=== PATIENT | male | born 1950 | race Caucasian/White ===

== ENCOUNTER 2017-02-24 15:56 | Inpatient (IN) | payer MEDICARE ==
[2017-02-24] VITALS (7 sets, daily range): BP systolic 81–120; BP diastolic 59–90; PULSE 84–151; RESP 28–36; TEMP 97.9; O2SAT 94–100
[2017-02-24] MEDS ORDERED: methylPREDNISolone SOD SUCC 125 MG/2 ML VIAL IVP ONE (16:15)
[2017-02-24] MEDS ORDERED: SODIUM CHLORIDE 0.9% FLUSH 10 ML FLUSH IVF PRN (16:15)
[2017-02-24] MEDS ORDERED: DILTIAZEM HCL 25 MG/5 ML VIAL IV ONE ×2 (16:15→17:15)
[2017-02-24] MEDS: RESP: ALBUTEROL 2.5 MG/IPRATROPIUM 0.5 MG NEB (SCH) INH (16:27)
[2017-02-24 16:40] LABS: AUTOMATED NEUTROPHIL # 21.8 TH/MM3 (1.8-7.7); BASOPHIL # 0.2 TH/MM3 (0-0.2); BASOPHIL % 0.8 % (0.0-2.0); EOSINOPHIL % 0.1 % (0.0-4.0); HEMATOCRIT 44.9 % (39.0-51.0); LYMPH % 3.9 % (9.0-44.0); MEAN CELL VOLUME 90.5 FL (80.0-100.0); MEAN CORPUSCULAR HEMOGLOBIN 29.2 PG (27.0-34.0); MEAN CORPUSCULAR HGB CONC 32.3 % (32.0-36.0); MONO % 6.2 % (0.0-8.0); PLATELET COUNT 255 TH/MM3 (150-450); RED BLOOD COUNT 4.97 MIL/MM3 (4.50-5.90); RED CELL DISTRIBUTION WIDTH 15.5 % (11.6-17.2); WHITE BLOOD COUNT 24.5 TH/MM3 (4.0-11.0)
[2017-02-24 16:44] LABS: HEMO FLAGS AUTO DIFF
[2017-02-24 16:48] LABS: APTT (PATIENT) 29.5 SEC (24.3-30.1); INTERNATIONAL NORMALIZED RATIO 1.3 RATIO; PROTHROMBIN TIME - PATIENT 14.7 SEC (9.8-11.6)
--- NOTE | 2017-02-24 16:48 | RADRPT ---
EXAM DATE/TIME: 02/24/2017 16:37 [place] COMPARISON: No previous studies available for comparison. INDICATIONS : Shortness of breath. MEDICAL HISTORY : None. SURGICAL HISTORY : None. ENCOUNTER: Initial ACUITY: 1 day PAIN SCORE: 0/10 LOCATION: Bilateral chest FINDINGS: A single view of the chest demonstrates the lungs to be hypoinflated with bibasilar atelectatic zhu es and possible associated effusions. Left perihilar airspace disease. Accounting for low lung volume s, heart size appears to be upper limits of normal. Degenerative spurring of the dorsal spine. Osseou s structures are otherwise intact. CONCLUSION: 1. Hypoinflation with bibasilar atelectasis and possible associated effusions. 2. Left perihilar airspace disease is nonspecific and may represent additional areas of atelectasis o r early infiltrate. Dominick Diamond MD on February 24, 2017 at 16:44 Board Certified Radiologist. This report was verified electronically.
--- NOTE | 2017-02-24 16:55 | PD ---
HPI Chief Complaint: Respiratory Symptoms Time Seen by Provider: 16:04 Travel History International Travel<30 days: No Contact w/Intl Traveler<30days: No Traveled to known affect area: No History of Present Illness HPI This is a 66-year-old male who has a history chemotherapy related cardiomyopathy as well as COPD who presents to the emergency department with increasing shortness of breath it's been progressive over the past week, constant, worsening, associated with a productive cough with white sputum, with no fevers or chills. He recently was treated by Dr. Marx for a COPD exacerbation and completed a course of prednisone. When his symptoms restarted he started prednisone again but his symptoms have not resolved. He went Dr. Parra today and in the office he was found to be in atrial fibrillation which appears to be a new diagnosis for him and he was transferred to the hospital. He denies any chest pain. PFSH Past Medical History Inguinal Hernia: Yes (1 RIGHT, 1 LEFT ) Tetanus Vaccination: > 5 Years Influenza Vaccination: Yes ?: Not Past Surgical History Eye Surgery: Yes (LASER EYE SURGERY) Thoracic Surgery: Yes (THORACOTOMY ) Social History Alcohol Use: No Tobacco Use: No Substance Use: No Allergies-Medications (Allergen,Severity, Reaction): Coded Allergies: HMG-CoA Reductase Inhibitors (Verified Allergy, Unknown, 02/24/17) Reported Meds & Prescriptions Reported Meds & Active Scripts Active Reported Levetiracetam 500 Mg Tab 500 Mg PO BID Klor-Con 10 (Potassium Chloride) 10 Meq Tab 10 Meq PO DAILY Furosemide 20 Mg Tab 20 Mg PO DAILY Anoro Ellipta Inh (Umeclidinium/Vilanterol) 62.5-25 Mcg/Act Aero 1 Puff INH DAILY Synthroid (Levothyroxine Sodium) 100 Mcg Tab 100 Mcg PO DAILY Aspirin 81 Mg Chew 81 Mg CHEW DAILY Crestor (Rosuvastatin Calcium) 20 Mg Tab 20 Mg PO DAILY Coreg (Carvedilol) 3.125 Mg Tab 3.125 Mg PO BID Review of Systems Except as stated in HPI: all other systems reviewed are Neg Physical Exam Narrative GENERAL: Moderate respiratory distress SKIN: Focused skin assessment warm and dry. HEAD: Atraumatic. Normocephalic. EYES: Pupils equal and round. No injection or drainage. ENT: Moist mucous membranes NECK: Trachea midline. CARDIOVASCULAR: Regular rate and rhythm. No murmur appreciated. RESPIRATORY: Prolonged expiratory phase, accessory muscle use, Rales in the bilateral lung bases GASTROINTESTINAL: Abdomen soft, non-tender, nondistended. MUSCULOSKELETAL: No obvious deformities. NEUROLOGICAL: Awake and alert. No obvious cranial nerve deficits. Moving all extremities. PSYCHIATRIC: Appropriate mood and affect; insight and judgment normal. Data Data Last Documented VS Vital Signs Date Time Temp Pulse Resp B/P Pulse Ox O2 Delivery O2 Flow Rate FiO2 02/24/17 17:30 142 30 103/75 94 Nasal Cannula 3 02/24/17 15:58 97.9 Orders Complete Blood Count With Diff (02/24/17 16:10) Comprehensive Metabolic Panel (02/24/17 16:10) B-Type Natriuretic Peptide (02/24/17 16:10) Troponin I (02/24/17 16:10) Iv Access Insert/Monitor (02/24/17 16:10) Electrocardiogram (02/24/17 16:10) Ecg Monitoring (02/24/17 16:10) Oximetry (02/24/17 16:10) Oxygen Administration (02/24/17 16:10) Chest, Single Ap (02/24/17 16:10) Sodium Chloride 0.9% Flush (Ns Flush) (02/24/17 16:15) Methylprednisolone So Succ Inj (Solumedr (02/24/17 16:15) Albuterol-Ipratropium Neb (Duoneb Neb) (02/24/17 16:15) Resp Bipap / Cpap Non Invas Vt (02/24/17 16:10) Arterial Blood Gas (Abg) (02/24/17 ) Diltiazem Inj (Cardizem Inj) (02/24/17 16:15) Prothrombin Time / Inr (Pt) (02/24/17 16:12) Act Partial Throm Time (Ptt) (02/24/17 16:12) Furosemide Inj (Lasix Inj) (02/24/17 17:00) Diltiazem Inj (Cardizem Inj) (02/24/17 17:15) Vital Signs (Adult) Q15MX4,Q4H (02/24/17 17:06) [employer] / Telemetry BRYAN.Q8H (02/24/17 17:06) Cardiac Rhythm BRYAN.Q8H (02/24/17 17:06) Notify Dr: Other (4/17/17 17:06) Diltiazem Inj (Cardizem Inj) (02/24/17 17:15) Admit Order (Ed Use Only) (02/24/17 18:23) Labs Laboratory Tests Test 02/24/17 02/24/17 16:20 17:12 White Blood Count 24.5 TH/MM3 Red Blood Count 4.97 MIL/MM3 Hemoglobin 14.5 GM/DL Hematocrit 44.9 % Mean Corpuscular Volume 90.5 FL Mean Corpuscular Hemoglobin 29.2 PG Mean Corpuscular Hemoglobin 32.3 % Concent Red Cell Distribution Width 15.5 % Platelet Count 255 TH/MM3 Mean Platelet Volume 9.5 FL Neutrophils (%) (Auto) 89.0 % Lymphocytes (%) (Auto) 3.9 % Monocytes (%) (Auto) 6.2 % Eosinophils (%) (Auto) 0.1 % Basophils (%) (Auto) 0.8 % Neutrophils # (Auto) 21.8 TH/MM3 Lymphocytes # (Auto) 1.0 TH/MM3 Monocytes # (Auto) 1.5 TH/MM3 Eosinophils # (Auto) 0.0 TH/MM3 Basophils # (Auto) 0.2 TH/MM3 CBC Comment AUTO DIFF Differential Total Cells 100 Counted Neutrophils % (Manual) 83 % Band Neutrophils % 7 % Lymphocytes % 4 % Monocytes % 6 % Neutrophils # (Manual) 22.1 TH/MM3 Differential Comment FINAL DIFF MANUAL Platelet Estimate NORMAL Platelet Morphology Comment NORMAL Red Cell Morphology Comment NORMAL Prothrombin Time 14.7 SEC Prothromb Time International 1.3 RATIO Ratio Activated Partial 29.5 SEC Thromboplast Time Sodium Level 142 MEQ/L Potassium Level 4.7 MEQ/L Chloride Level 105 MEQ/L Carbon Dioxide Level 28.4 MEQ/L Anion Gap 9 MEQ/L Blood Urea Nitrogen 40 MG/DL Creatinine 1.31 MG/DL Estimat Glomerular Filtration 54 ML/MIN Rate Random Glucose 124 MG/DL Calcium Level 8.9 MG/DL Total Bilirubin 1.0 MG/DL Aspartate Amino Transf 38 U/L (AST/SGOT) Alanine Aminotransferase 48 U/L (ALT/SGPT) Alkaline Phosphatase 105 U/L Troponin I 0.07 NG/ML B-Type Natriuretic Peptide 969 PG/ML Total Protein 7.5 GM/DL Albumin 2.8 GM/DL Blood Gas Puncture Site RT RADIAL Blood Gas Patient Temperature 98.6 Blood Gas HCO3 25 mmol/L Blood Gas Base Excess 1.5 mmol/L Blood Gas Oxygen Saturation 98 % Arterial Blood pH 7.44 Arterial Blood Partial 38 mmHg Pressure CO2 Arterial Blood Partial 179 mmHG Pressure O2 Arterial Blood Oxygen Content 19.7 Vol % Arterial Blood 1.5 % Carboxyhemoglobin Arterial Blood Methemoglobin 0.5 % Blood Gas Hemoglobin 14.1 G/DL Oxygen Delivery Device BiPAP Blood Gas Ventilator Setting IPAP10 EPAP10 Blood Gas Inspired Oxygen 40 % MDM Medical Decision Making Medical Screen Exam Complete: Yes Emergency Medical Condition: Yes Interpretation(s) Afebrile, tachycardic, tachypneic Leukocytosis with 89% neutrophils 7% bands BNP is 969 Troponin is 0.07 Creatinine is 1.3 Differential Diagnosis Congestive heart failure, atrial fibrillation with RVR, pulmonary embolism, pneumonia, COPD exacerbation Narrative Course This is a 66-year-old male who has a history of COPD and cardiomyopathy who presents to the emergency department with increasing shortness of breath it's been worsening over the past week and acutely worsened today. On arrival he was cyanotic with blue color around his lips and his fingers. We were unable to obtain a pulse ox. He had accessory muscle use and was speaking in 2 word sentences. He was placed on BiPAP and his color improved. His oxygenation improved and he was more comfortable. He was found to be tachycardic with atrial fibrillation with RVR and EKG which is a new diagnosis for him. He was given 2 diltiazem boluses and started on a diltiazem infusion. He was also given serial bronchodilator treatments and methylprednisolone in the setting of his history of COPD. Labs and chest x-ray confirm congestive heart failure exacerbation. Patient also has a leukocytosis which is likely in the setting of recent prednisone use and has a 7% bandemia. He'll be empirically covered for possible pneumonia given his ill appearance. Patient was trialed off of BiPAP after reassuring blood gas and about 2 hours of observation and he became acutely dyspneic again and his oxygen saturations dropped. Patient was placed back on BiPAP and will be admitted to the intensive care unit. Critical Care Narrative Aggregate critical care time was 45 minutes. Time to perform other separately billable procedures was not included in the critical care time. My time did not include minutes spent treating any other patients simultaneously or on activities that did not directly contribute to the patient's treatment. The services I provided to this patient were to treat and/or prevent clinically significant deterioration that could result in: Disability, I provided critical care services requiring my management, as noted below: Chart data review, documentation time, medication orders and management, vital sign assessments/reviewing monitor data, ordering and reviewing lab tests, ordering and interpreting/reviewing x-rays and diagnostic studies, care of the patient and discussion of the patient with the admitting physicians. Diagnosis Primary Impression: Atrial fibrillation with RVR Additional Impression: Congestive heart failure Qualified Code: I50.9 - Acute congestive heart failure, unspecified congestive heart failure type Admitting Information Admitting Physician Requests: Admit Mildred Castano MD Feb 24, 2017 16:55
[2017-02-24] MEDS ORDERED: FUROSEMIDE 40 MG/4 ML VIAL IV PUSH ONE (17:00)
[2017-02-24] MEDS ORDERED: POTA-243 PO (17:02)
[2017-02-24] MEDS ORDERED: LEVO.1 PO (17:02)
[2017-02-24] MEDS ORDERED: ASPI81CH CHEW (17:02)
[2017-02-24] MEDS ORDERED: LEVE500T8 PO (17:02)
[2017-02-24] MEDS ORDERED: UMEC1AER INH (17:02)
[2017-02-24] MEDS ORDERED: FURO20TA PO (17:02)
[2017-02-24] MEDS ORDERED: ROSU20 PO (17:02)
[2017-02-24] MEDS ORDERED: CARV3.125 PO (17:02)
[2017-02-24 17:03] LABS: ALKALINE PHOSPHATASE 105 U/L (45-117)
[2017-02-24 17:05] LABS: BANDS 7 % (0-6); NEUTROPHIL # MANUAL DIFF 22.1 TH/MM3 (1.8-7.7); PLATELET ESTIMATE SMEAR NORMAL (NORMAL); PLATELET MORPHOLOGY NORMAL (NORMAL); POLYS (SEG NEUTROPHILS) 83 % (16-70); SCAN/DIFF FINAL DIFF MANUAL; WBC DIFF SAMPLE 100
[2017-02-24 17:06] LABS: ALT (GPT) 48 U/L (12-78); ANION GAP 9 MEQ/L (5-15); AST (GOT) 38 U/L (15-37); BICARBONATE 28.4 MEQ/L (21.0-32.0); BLOOD UREA NITROGEN 40 MG/DL (7-18); CHLORIDE 105 MEQ/L (98-107); GLOMERULAR FILTRATION RATE 54 ML/MIN (>89); POTASSIUM 4.7 MEQ/L (3.5-5.1); SODIUM (NA) 142 MEQ/L (136-145)
[2017-02-24] MEDS ORDERED: DILTIAZEM INJ 125 MG in SODIUM CHLORIDE 0.9% INJ 100 ML IV SCH (17:15)
[2017-02-24 17:22] LABS: BLOOD GAS BASE EXCESS 1.5 mmol/L (-2-2); BLOOD GAS CARBOXYHEMOGLOBIN 1.5 % (0-4); BLOOD GAS HCO3 25 mmol/L (22-26); BLOOD GAS METHEMOGLOBIN 0.5 % (0-2); BLOOD GAS O2 HGB SATURATION 98 % (90-100); BLOOD GAS OXYGEN CONTENT 19.7 Vol % (12.0-20.0); BLOOD GAS PCO2 38 mmHg (38-42); BLOOD GAS PO2 179 mmHG (61-120); BLOOD GAS TOTAL HGB 14.1 G/DL (12.0-16.0); CRITICAL VALUE NO; DRAW SITE RT RADIAL; FIO2 40 %; NUMBER OF ARTERIAL PUNCTURES 1; OXYGEN DEVICE BiPAP; STAT YES; TEMP CORR TO 98.6; ULNAR PULSE Y; VENT SETTINGS IPAP10 EPAP10
[2017-02-24] MEDS ORDERED: CEFEPIME INJ 2,000 MG in SODIUM CHLORIDE 0.9% INJ 100 ML IV ONE (18:30)
[2017-02-24] MEDS ORDERED: AZITHROMYCIN INJ 500 MG in SODIUM CHLOR 0.9% 250 ML INJ 250 ML IV ONE (18:30)
[2017-02-24] MEDS ORDERED: AMIODARONE INJ 150 MG in DEXTROSE 5% IN WATER 100ML INJ 97 ML IV ONE ×2 (18:45)
[2017-02-24] MEDS ORDERED: AMIODARONE INJ 450 MG in DEXTROSE 5% IN WATE(EXCEL) INJ 241 ML IV SCH ×2 (18:45)
[2017-02-24] MEDS ORDERED: ZOLPIDEM TARTRATE 5 MG TAB PO PRN (19:00)
[2017-02-24] MEDS ORDERED: MORPHINE SULFATE 4 MG/ML INJ IV PRN (19:00)
[2017-02-24] MEDS ORDERED: METOCLOPRAMIDE HCL 10 MG/2 ML VIAL IV PRN (19:00)
[2017-02-24] MEDS ORDERED: ONDANSETRON HCL 4 MG/2 ML VIAL IV PRN (19:00)
[2017-02-24] MEDS ORDERED: SODIUM CHLORIDE 0.9% FLUSH 10 ML FLUSH PRN (19:00)
[2017-02-24] MEDS ORDERED: ALBUMIN HUMAN 5% 25 GM/500 ML BOTTLE IV ONE (19:00)
[2017-02-24] MEDS ORDERED: CHLORHEXIDINE GLUCONATE 2 % 1 PACK (2 CLOTHS) TOP PRN (19:00)
[2017-02-24] MEDS ORDERED: ENOXAPARIN SODIUM 40 MG/0.4 ML SYRINGE SQ SCH (19:00)
[2017-02-24] MEDS ORDERED: ACETAMINOPHEN 325 MG TAB PO PRN (19:00)
[2017-02-24] MEDS ORDERED: MISCELLANEOUS NURSING INFORMATION XX SCH (19:00)
[2017-02-24] MEDS ORDERED: RESP: ALBUTEROL 2.5 MG/IPRATROPIUM 0.5 MG NEB (PRN) INH (19:00)
--- NOTE | 2017-02-24 19:32 | EKG ---
Date Performed: 02/24/2017 Time Performed: 16:44:10 PTAGE: 66 years EKG: ATRIAL FIBRILLATION WITH RAPID VENTRICULAR RESPONSE SEPTAL MYOCARDIAL INFARCTION ABNORMAL E CG NO PREVIOUS TRACING DOCTOR: Nghia Watson Interpretating Date/Time 02/24/2017 19:31:24
[2017-02-24] MEDS ORDERED: RESP: ALBUTEROL 2.5 MG/IPRATROPIUM 0.5 MG NEB (SCH) INH (20:00)
[2017-02-24] MEDS ORDERED: EPINEPHrine HCL (1:1000) 1 MG/ML VIAL ONE (20:02)
[2017-02-24 20:26] LABS: BLOOD GAS BASE EXCESS -0.6 mmol/L (-2-2); BLOOD GAS CARBOXYHEMOGLOBIN 1.1 % (0-4); BLOOD GAS HCO3 22 mmol/L (22-26); BLOOD GAS METHEMOGLOBIN 0.1 % (0-2); BLOOD GAS O2 HGB SATURATION 99 % (90-100); BLOOD GAS OXYGEN CONTENT 15.6 Vol % (12.0-20.0); BLOOD GAS PCO2 25 mmHg (38-42); BLOOD GAS PO2 308 mmHG (61-120); BLOOD GAS TOTAL HGB 10.7 G/DL (12.0-16.0); CRITICAL VALUE YES; TEMP CORR TO 98.6
[2017-02-24 20:27] LABS: DRAW SITE ART LINE; FIO2 100 %; LITER FLOW 15 L/M; OXYGEN DEVICE AMBU; STAT YES
--- NOTE | 2017-02-24 20:32 | PD ---
Physical Exam Narrative 66-year-old male was seen by Dr. Castano and admitted to Dr. Rousseau. Patient went into cardiopulmonary arrest. [employer] lending team member shows PEA. ACLS protocol started. Dr. Rousseau was intact immediately and came to the bedside. Data Data Last Documented VS Vital Signs Date Time Temp Pulse Resp B/P Pulse Ox O2 Delivery O2 Flow Rate FiO2 02/24/17 17:30 142 30 103/75 94 Nasal Cannula 3 02/24/17 15:58 97.9 Orders Complete Blood Count With Diff (02/24/17 16:10) Comprehensive Metabolic Panel (02/24/17 16:10) B-Type Natriuretic Peptide (02/24/17 16:10) Troponin I (02/24/17 16:10) Iv Access Insert/Monitor (02/24/17 16:10) Electrocardiogram (02/24/17 16:10) Ecg Monitoring (02/24/17 16:10) Oximetry (02/24/17 16:10) Oxygen Administration (02/24/17 16:10) Chest, Single Ap (02/24/17 16:10) Sodium Chloride 0.9% Flush (Ns Flush) (02/24/17 16:15) Methylprednisolone So Succ Inj (Solumedr (02/24/17 16:15) Albuterol-Ipratropium Neb (Duoneb Neb) (02/24/17 16:15) Resp Bipap / Cpap Non Invas Vt (02/24/17 16:10) Arterial Blood Gas (Abg) (02/24/17 ) Diltiazem Inj (Cardizem Inj) (02/24/17 16:15) Prothrombin Time / Inr (Pt) (02/24/17 16:12) Act Partial Throm Time (Ptt) (02/24/17 16:12) Furosemide Inj (Lasix Inj) (02/24/17 17:00) Diltiazem Inj (Cardizem Inj) (02/24/17 17:15) Vital Signs (Adult) Q15MX4,Q4H (02/24/17 17:06) Public Relations Professional / Telemetry BRYAN.Q8H (02/24/17 17:06) Cardiac Rhythm BRYAN.Q8H (02/24/17 17:06) Notify Dr: Other (02/24/17 17:06) Diltiazem Inj (Cardizem Inj) (02/24/17 17:15) Admit Order (Ed Use Only) (02/24/17 18:23) Labs Laboratory Tests Test 02/24/17 02/24/17 16:20 17:12 White Blood Count 24.5 TH/MM3 Red Blood Count 4.97 MIL/MM3 Hemoglobin 14.5 GM/DL Hematocrit 44.9 % Mean Corpuscular Volume 90.5 FL Mean Corpuscular Hemoglobin 29.2 PG Mean Corpuscular Hemoglobin 32.3 % Concent Red Cell Distribution Width 15.5 % Platelet Count 255 TH/MM3 Mean Platelet Volume 9.5 FL Neutrophils (%) (Auto) 89.0 % Lymphocytes (%) (Auto) 3.9 % Monocytes (%) (Auto) 6.2 % Eosinophils (%) (Auto) 0.1 % Basophils (%) (Auto) 0.8 % Neutrophils # (Auto) 21.8 TH/MM3 Lymphocytes # (Auto) 1.0 TH/MM3 Monocytes # (Auto) 1.5 TH/MM3 Eosinophils # (Auto) 0.0 TH/MM3 Basophils # (Auto) 0.2 TH/MM3 CBC Comment AUTO DIFF Differential Total Cells 100 Counted Neutrophils % (Manual) 83 % Band Neutrophils % 7 % Lymphocytes % 4 % Monocytes % 6 % Neutrophils # (Manual) 22.1 TH/MM3 Differential Comment FINAL DIFF MANUAL Platelet Estimate NORMAL Platelet Morphology Comment NORMAL Red Cell Morphology Comment NORMAL Prothrombin Time 14.7 SEC Prothromb Time International 1.3 RATIO Ratio Activated Partial 29.5 SEC Thromboplast Time Sodium Level 142 MEQ/L Potassium Level 4.7 MEQ/L Chloride Level 105 MEQ/L Carbon Dioxide Level 28.4 MEQ/L Anion Gap 9 MEQ/L Blood Urea Nitrogen 40 MG/DL Creatinine 1.31 MG/DL Estimat Glomerular Filtration 54 ML/MIN Rate Random Glucose 124 MG/DL Calcium Level 8.9 MG/DL Total Bilirubin 1.0 MG/DL Aspartate Amino Transf 38 U/L (AST/SGOT) Alanine Aminotransferase 48 U/L (ALT/SGPT) Alkaline Phosphatase 105 U/L Troponin I 0.07 NG/ML B-Type Natriuretic Peptide 969 PG/ML Total Protein 7.5 GM/DL Albumin 2.8 GM/DL Blood Gas Puncture Site RT RADIAL Blood Gas Patient Temperature 98.6 Blood Gas HCO3 25 mmol/L Blood Gas Base Excess 1.5 mmol/L Blood Gas Oxygen Saturation 98 % Arterial Blood pH 7.44 Arterial Blood Partial 38 mmHg Pressure CO2 Arterial Blood Partial 179 mmHG Pressure O2 Arterial Blood Oxygen Content 19.7 Vol % Arterial Blood 1.5 % Carboxyhemoglobin Arterial Blood Methemoglobin 0.5 % Blood Gas Hemoglobin 14.1 G/DL Oxygen Delivery Device BiPAP Blood Gas Ventilator Setting IPAP10 EPAP10 Blood Gas Inspired Oxygen 40 % MDM Supervised Visit with ELICIA: No Narrative Course Patient told the nurse that he doesn't feel well and then coded. [employer] lending team member shows PEA. ACLS protocol started. Chest compression started. Patient was intubated by me. Patient was intubated 2 because of ET tube displaced during chest compression and anchoring of the ET tube. Multiple doses of epinephrine IV given. Patient was given 2 A of bicarbonate IV. Chest compression continued throughout. Dr. Rousseau at bedside. Patient regained pulses several time. A line was started on the right femoral and triple lumen on the left femoral vein by Dr. Rousseau. Patient has recurrent pulseless despite all treatment. Patient was pronounced. Critical Care Narrative Aggregate critical care time was 60 minutes. Time to perform other separately billable procedures was not included in the critical care time. My time did not include minutes spent treating any other patients simultaneously or on activities that did not directly contribute to the patient's treatment. The services I provided to this patient were to treat and/or prevent clinically significant deterioration that could result in: I provided critical care services requiring my management, as noted below: Chart data review, documentation time, medication orders and management, vital sign assessments/reviewing monitor data, ordering and reviewing lab tests, ordering and interpreting/reviewing x-rays and diagnostic studies, care of the patient and discussion of the patient with the admitting physicians. Procedures Procedure Narrative After the risks and benefits were discussed the following procedure was performed: INTUBATION: The patient was put in optimal position for the procedure. Rapid sequence intubation was initiated by me. The patient was intubated with a 7.5 cuffed endotracheal tube. Tube placement was confirmed by visualization of the tube and balloon passing through the cords, capnometry and subsequent chest x- ray. Breath sounds were equal and well aerated bilaterally postintubation. No breath sounds over stomach. Patient tolerated procedure well. Diagnosis Primary Impression: Atrial fibrillation with RVR Additional Impressions: Congestive heart failure Qualified Code: I50.9 - Acute congestive heart failure, unspecified congestive heart failure type Cardiopulmonary arrest Disposition: 20 Condition: Richard Inman MD Feb 24, 2017 20:32
[2017-02-24] MEDS ORDERED: SODIUM CHLORIDE 0.9% FLUSH 10 ML FLUSH SCH (21:00)
[2017-02-24] MEDS ORDERED: levETIRAcetam 500 MG TAB PO SCH (21:00)
[2017-02-24] MEDS ORDERED: CARVEDILOL 3.125 MG TAB PO SCH (21:00)
[2017-02-24] MEDS ORDERED: FAMOTIDINE 20 MG/2 ML VIAL IV PUSH SCH (21:00)
[2017-02-24] MEDS ORDERED: CALCIUM CHLORIDE 10% SOLN 1 GRAM/10 ML SYR IV ONE (22:34)
[2017-02-24] MEDS ORDERED: SODIUM BICARBONATE 8.4% INJ 50 MEQ/50 ML SYR IV ONE (22:34)
[2017-02-24] MEDS ORDERED: EPINEPHrine HCL (1:10,000) 1 MG/10 ML SYRINGE IV ONE ×2 (22:34)
[2017-02-25] MEDS ORDERED: CHLORHEXIDINE GLUCONATE 2 % 1 PACK (2 CLOTHS) TOP SCH (04:00)
[2017-02-25] MEDS ORDERED: ATORVASTATIN 40 MG TAB PO SCH (09:00)
[2017-02-25] MEDS ORDERED: LEVOTHYROXINE SODIUM 100 MCG TAB PO SCH (09:00)
[2017-02-25] MEDS ORDERED: ASPIRIN 81 MG CHEW TAB CHEW SCH (09:00)
[2017-02-25] MEDS ORDERED: UMECLIDINIUM 62.5 MCG/VILANTEROL 25 MCG INHALER INH SCH (09:00)
== END 2017-02-24 22:35 | disposition expired | DRG 292 ==
LOC: NEPE 15:56 → NEDA 18:24
PROVIDERS: ADMIT Internal Medicine Critical Care Medicine; ATTEND Internal Medicine Critical Care Medicine
PROC: 5A12012 Performance of Cardiac Output, Single, Manual (ICD-10-PCS; principal; 2017-02-24)
PROC: 0BH17EZ Insertion of Endotracheal Airway into Trachea, Via Natural or Artificial Opening (ICD-10-PCS; 2017-02-24)
PROC: 06HN33Z Insertion of Infusion Device into Left Femoral Vein, Percutaneous Approach (ICD-10-PCS; 2017-02-24)
DX: I50.9 Heart failure, unspecified (principal); J44.1 Chronic obstructive pulmonary disease with (acute) exacerbation; I46.9 Cardiac arrest, cause unspecified; I42.7 Cardiomyopathy due to drug and external agent; I48.91 Unspecified atrial fibrillation; T45.1X5A Adverse effect of antineoplastic and immunosuppressive drugs, initial encounter
CPT/HCPCS: 36600; 71010; 80053; 82805; 83605; 83880; 84484; 85007; 85027; 85610; 85730; 87040; 92950; 93005; 94640; 94664; 96374; 96375; 96376; J0171; J0456; J1940; J2930; J7050